=== PATIENT | female | born 1940 | race Caucasian/White ===

== ENCOUNTER 2020-10-18 04:19 | Day surgery (SDCO) | payer MEDICARE, OTHER ==
[~2020-10-18 04:19] MED LIST: ASPIRIN CHEWABL81 MG PO; B COMPLEX WITH1 EACH PO; CERTAGEN; METRONIDAZOLE500 MG PO; NORVASC2.5 MG PO; PREMARIN0.3 MG PO; PROBIOTIC1 EAC1 PO; SYNTHROID50 MCG PO; VITAMIN D310 MC3 PO
[2020-10-18 04:59] LABS: BASOPHIL 1.3 % (0-2); EOSINOPHIL 5.9 % (0-7); HGB 13.8 g/dl (12.5-16.0); LYMPHOCYTE 27.5 % (15-48); MCH 29.5 pg (25.0-31.0); MCHC 32.9 g/dL (32.0-36.0); MCV 89.7 fL (78.0-100.0); MONOCYTE 5.3 % (0-12); MPV 12.3 fL (6.0-9.5); NRBC 0; PLT 267 K/uL (150-400); RBC 4.68 M/uL (4.20-5.40); RDW 14.3 % (11.5-14.0); WBC 8.4 K/uL (4.0-10.5)
[2020-10-18 05:00] LABS: NEUTROPHIL 59.9 % (41-80)
[2020-10-18 05:25] LABS: ALBUMIN 3.3 g/dL (3.4-5.0); BILIRUBIN - TOTAL 0.3 mg/dL (0.2-1.0); BUN/CREAT RATIO (CALC) 23.9 RATIO; CREATININE 0.92 mg/dL (0.51-0.95); POTASSIUM 3.6 mmol/L (3.5-5.1); TOTAL PROTEIN 7.3 g/dL (6.4-8.2)
[2020-10-18 05:29] LABS: PRO-BNP 4659 pg/mL (<450)
[2020-10-18 05:55] LABS: CORONAVIRUS 2019 SARS-COV-2 NEGATIVE (NEGATIVE); INFLUENZA A NAA NEGATIVE (NEGATIVE)
[2020-10-18] MEDS ORDERED: TOPROL XL 50 MG50 MG PO (08:47)
--- NOTE | 2020-10-18 10:45 | NUR ---
LIVES WITH SPOUSE REPORTS INDEPENDENT WITH ADL'S
--- NOTE | 2020-10-18 12:55 | NUR ---
PT REPORTS SHE LIVES AT HOME WITH HER SPOUSE; SHE SAYS SHE DOES ALL HER ADL'S AND DOES NOT FEEL LIKE SHE WILL NEED ANY HOME HEALTH AT THIS TIME
[2020-10-19 04:45] LABS: HCT 41.9 % (37.0-47.0); HGB 14.1 g/dl (12.5-16.0); LYMPHOCYTE 24.8 % (15-48); MCH 29.9 pg (25.0-31.0); MCHC 33.7 g/dL (32.0-36.0); MCV 88.8 fL (78.0-100.0); MONOCYTE 6.2 % (0-12); MPV 12.7 fL (6.0-9.5); NEUTROPHIL 64.7 % (41-80); NRBC 0; PLT 241 K/uL (150-400); RBC 4.72 M/uL (4.20-5.40); RDW 14.2 % (11.5-14.0); WBC 8.8 K/uL (4.0-10.5)
[2020-10-19 05:01] LABS: BUN/CREAT RATIO (CALC) 21.6 RATIO; CREATININE 0.88 mg/dL (0.51-0.95); POTASSIUM 3.2 mmol/L (3.5-5.1)
--- NOTE | 2020-10-19 14:34 | NUR ---
1000 SPOKE TO A [employer] REPRESENTITIVE REGAURDING THE LIFE VEST THAT IS TO BE PLACED TODAY. STATED THAT THEY HAD HER INFORMATION AND WOULD BE CONTACTING US SOON TO TELL US AN ETA.
--- NOTE | 2020-10-19 14:53 | NUR ---
TOOK WLAK UP AND DOWN BOTH HALLS WITH PATIENT. TOLERATED WELL. WAS SLIGHTLY SHORT OF AIR APLIED O2 FOR APPROX 3 MINUTES WHILE ENCOURAGING DEEP BREATHING EXERCISES AND THEN O2 WAS REMOVED. PT STABLE WITH NO COMPLAINTS.
[2020-10-19] MEDS ORDERED: K-DUR20 MEQ PO (17:32)
[2020-10-19] MEDS ORDERED: ENTRESTO 24 MG1 EACH PO ×2 (17:32→18:22)
[2020-10-19] MEDS ORDERED: LASIX40 MG PO (17:32)
[2020-10-19] MEDS ORDERED: LISINOPRIL-HCT1 EAC1 PO (18:24)
== END 2020-10-19 18:50 | disposition home or self-care (01) ==
LOC: FER 04:19 → FMS 07:15
PROVIDERS: Emergency Medicine; Nurse Practitioner Family; ADMIT Internal Medicine
DX: I11.0 Hypertensive heart disease with heart failure (principal); I50.23 Acute on chronic systolic (congestive) heart failure; I50.1 Left ventricular failure, unspecified; I25.10 Atherosclerotic heart disease of native coronary artery without angina pectoris; J90 Pleural effusion, not elsewhere classified; E03.9 Hypothyroidism, unspecified; Z91.040 Latex allergy status; Z20.822 Contact with and (suspected) exposure to COVID-19; Z90.49 Acquired absence of other specified parts of digestive tract; Z87.39 Personal history of other diseases of the musculoskeletal system and connective tissue; Z82.49 Family history of ischemic heart disease and other diseases of the circulatory system
CPT/HCPCS: 36415; 36600; 71045; 71275; 80048; 80053; 82803; 83605; 83880; 84145; 84484; 85025; 85379; 87040; 93005; 94760; G0378; Q9967; U0002

== ENCOUNTER 2020-11-22 19:02 | Emergency (ER) | payer MEDICARE, OTHER ==
[~2020-11-22 19:02] MED LIST changes: +ENTRESTO 24 MG1 EACH PO; +K-DUR20 MEQ PO; +LASIX40 MG PO; +LISINOPRIL-HCT1 EAC1 PO; +TOPROL XL 50 MG50 MG PO
[2020-11-22 19:32] LABS: BASOPHIL 0.8 % (0-2); EOSINOPHIL 2.2 % (0-7); HCT 41.7 % (37.0-47.0); LYMPHOCYTE 27.6 % (15-48); MCHC 33.6 g/dL (32.0-36.0); MCV 89.3 fL (78.0-100.0); NEUTROPHIL 62.3 % (41-80); NRBC 0; PLT 260 K/uL (150-400); RBC 4.67 M/uL (4.20-5.40); RDW 14.7 % (11.5-14.0); WBC 9.3 K/uL (4.0-10.5)
[2020-11-22 19:36] LABS: INR 0.99 (0.9-1.2); PROTHROMBIN TIME 12.4 SECONDS (11.4-13.6); PTT 24.7 SECONDS (22.2-34.7)
[2020-11-22 19:51] LABS: ALBUMIN 3.6 g/dL (3.4-5.0); BILIRUBIN - TOTAL 0.4 mg/dL (0.2-1.0); CREATININE 0.88 mg/dL (0.51-0.95); GLOBULIN (CALCULATION) 3.9 g/dL; POTASSIUM 3.7 mmol/L (3.5-5.1); TOTAL PROTEIN 7.5 g/dL (6.4-8.2)
== END 2020-11-22 22:30 | disposition home or self-care (01) ==
LOC: FER 19:02
PROVIDERS: Student in an Organized Health Care Education/Training Program
DX: R07.9 Chest pain, unspecified (principal); I44.7 Left bundle-branch block, unspecified; I11.0 Hypertensive heart disease with heart failure; I50.9 Heart failure, unspecified
CPT/HCPCS: 36415; 71045; 80053; 84484; 85025; 85610; 85730; 93005

== ENCOUNTER 2021-11-29 20:04 | Emergency (ER) | payer MEDICARE, OTHER ==
[2021-11-29 21:19] LABS: BASOPHIL 0.9 % (0-2); EOSINOPHIL 1.3 % (0-7); HCT 43.5 % (37.0-47.0); HGB 14.9 g/dl (12.5-16.0); LYMPHOCYTE 21.4 % (15-48); MCH 30.7 pg (25.0-31.0); MCHC 34.3 g/dL (32.0-36.0); MCV 89.5 fL (78.0-100.0); MONOCYTE 9.5 % (0-12); MPV 11.9 fL (6.0-9.5); NEUTROPHIL 66.6 % (41-80); NRBC 0; PLT 236 K/uL (150-400); RBC 4.86 M/uL (4.20-5.40); RDW 13.2 % (11.5-14.0); WBC 8.7 K/uL (4.0-10.5)
[2021-11-29 21:22] LABS: BILIRUBIN NEGATIVE (NEGATIVE); BLOOD TRACE-INTACT Ery/uL (NEGATIVE); CLARITY CLEAR (CLEAR); COLOR YELLOW (YELLOW); GLUCOSE (U) NORMAL (NORMAL); LEUKOCYTES 2+ Leu/uL (NEGATIVE); NITRITE NEGATIVE (NEGATIVE); PROTEIN NEGATIVE (NEGATIVE); UROBILINOGEN 0.2 mg/dL (0.2-1.0)
[2021-11-29 21:31] LABS: BACTERIA TRACE; YEAST PRESENT
[2021-11-29 21:37] LABS: ALBUMIN 3.5 g/dL (3.4-5.0); BILIRUBIN - TOTAL 0.3 mg/dL (0.2-1.0); BUN/CREAT RATIO (CALC) 14.3 RATIO; CREATININE 1.05 mg/dL (0.51-0.95); GLOBULIN (CALCULATION) 4.2 g/dL; POTASSIUM 3.3 mmol/L (3.5-5.1); TOTAL PROTEIN 7.7 g/dL (6.4-8.2)
[2021-11-29] MEDS ORDERED: IMODIUM2 MG PO (22:56)
== END 2021-11-29 23:18 | disposition home or self-care (01) ==
LOC: FER 20:04
PROVIDERS: Physician Assistant
DX: R19.7 Diarrhea, unspecified (principal); T50.905A Adverse effect of unspecified drugs, medicaments and biological substances, initial encounter; I10 Essential (primary) hypertension; Z91.09 Other allergy status, other than to drugs and biological substances
CPT/HCPCS: 36415; 80053; 81001; 83690; 85025; J7040

== ENCOUNTER 2021-12-01 08:38 | Emergency (ER) | payer MEDICARE, OTHER ==
[~2021-12-01 08:38] MED LIST changes: +IMODIUM2 MG PO
[2021-12-01 10:06] LABS: BASOPHIL 0.7 % (0-2); EOSINOPHIL 2.2 % (0-7); HCT 43.1 % (37.0-47.0); HGB 14.7 g/dl (12.5-16.0); LYMPHOCYTE 20.8 % (15-48); MCH 30.4 pg (25.0-31.0); MCHC 34.1 g/dL (32.0-36.0); MONOCYTE 6.7 % (0-12); MPV 11.8 fL (6.0-9.5); NEUTROPHIL 69.2 % (41-80); NRBC 0; PLT 247 K/uL (150-400); RBC 4.84 M/uL (4.20-5.40); RDW 13.2 % (11.5-14.0)
[2021-12-01 10:09] LABS: BILIRUBIN NEGATIVE (NEGATIVE); BLOOD TRACE-INTACT Ery/uL (NEGATIVE); CLARITY CLEAR (CLEAR); COLOR YELLOW (YELLOW); GLUCOSE (U) NORMAL (NORMAL); LEUKOCYTES 2+ Leu/uL (NEGATIVE); NITRITE NEGATIVE (NEGATIVE); PROTEIN NEGATIVE (NEGATIVE); UROBILINOGEN 0.2 mg/dL (0.2-1.0)
[2021-12-01 10:19] LABS: BACTERIA 1+; URINARY RBC RARE
[2021-12-01 10:25] LABS: ALBUMIN 3.4 g/dL (3.4-5.0); BILIRUBIN - TOTAL 0.3 mg/dL (0.2-1.0); BUN/CREAT RATIO (CALC) 12.2 RATIO; CREATININE 0.9 mg/dL (0.51-0.95); GLOBULIN (CALCULATION) 3.7 g/dL; MAGNESIUM 1.6 mg/dL (1.8-2.4); TOTAL PROTEIN 7.1 g/dL (6.4-8.2)
[2021-12-01 10:27] LABS: LACTIC ACID 0.9 mmol/L (0.4-1.9)
[2021-12-02] MEDS ORDERED: POTASSIUM CHLO20 ME1 PO (08:38)
== END 2021-12-01 12:51 | disposition home or self-care (01) ==
LOC: FER 08:38
PROVIDERS: Emergency Medicine
DX: R19.7 Diarrhea, unspecified (principal); E87.6 Hypokalemia; I11.0 Hypertensive heart disease with heart failure; I50.9 Heart failure, unspecified; E03.9 Hypothyroidism, unspecified; Z79.82 Long term (current) use of aspirin; Z79.890 Hormone replacement therapy; Z79.899 Other long term (current) drug therapy; Z91.040 Latex allergy status
CPT/HCPCS: 36415; 80053; 81001; 82270; 83605; 83735; 84145; 85025; 87040; 87449; 99284; J7040

== ENCOUNTER 2021-12-02 04:45 | Emergency (ER) | payer MEDICARE, OTHER ==
[2021-12-02 05:16] LABS: BASOPHIL 0.9 % (0-2); EOSINOPHIL 1.9 % (0-7); HCT 42.3 % (37.0-47.0); HGB 14.6 g/dl (12.5-16.0); LYMPHOCYTE 22.7 % (15-48); MCH 30.5 pg (25.0-31.0); MCHC 34.5 g/dL (32.0-36.0); MCV 88.5 fL (78.0-100.0); MONOCYTE 7.5 % (0-12); MPV 11.6 fL (6.0-9.5); NEUTROPHIL 66.8 % (41-80); NRBC 0; PLT 234 K/uL (150-400); RBC 4.78 M/uL (4.20-5.40); RDW 13.2 % (11.5-14.0); WBC 8.9 K/uL (4.0-10.5)
[2021-12-02 05:55] LABS: ALBUMIN 3.2 g/dL (3.4-5.0); BILIRUBIN - TOTAL 0.4 mg/dL (0.2-1.0); BUN/CREAT RATIO (CALC) 12.7 RATIO; CREATININE 0.79 mg/dL (0.51-0.95); GLOBULIN (CALCULATION) 3.9 g/dL; MAGNESIUM 1.5 mg/dL (1.8-2.4); TOTAL PROTEIN 7.1 g/dL (6.4-8.2)
[2021-12-02] MEDS ORDERED: POTASSIUM CHLO20 ME1 PO (08:38)
== END 2021-12-02 09:30 | disposition home or self-care (01) ==
LOC: FER 04:45
PROVIDERS: Internal Medicine
DX: R20.2 Paresthesia of skin (principal); E87.6 Hypokalemia; G47.00 Insomnia, unspecified; E83.42 Hypomagnesemia
CPT/HCPCS: 36415; 80053; 83690; 83735; 84484; 85025; 93005; J3475; J3480; J7040; J7050

== ENCOUNTER 2021-12-05 22:06 | Emergency (ER) | payer MEDICARE, OTHER ==
[~2021-12-05 22:06] MED LIST changes: +POTASSIUM CHLO20 ME1 PO
[2021-12-06] MEDS ORDERED: CARAFATE S500 MG/TSP PO (00:36)
== END 2021-12-06 01:05 | disposition home or self-care (01) ==
LOC: FER 22:06
DX: F45.8 Other somatoform disorders (principal); Z91.040 Latex allergy status
CPT/HCPCS: 70490; 71045; 71250; 99284; Q9963

== ENCOUNTER 2021-12-08 00:59 | Emergency (ER) | payer MEDICARE, OTHER ==
[~2021-12-08 00:59] MED LIST changes: +CARAFATE S500 MG/TSP PO
[2021-12-08 01:14] LABS: BASOPHIL 0.9 % (0-2); EOSINOPHIL 2.8 % (0-7); HCT 40.5 % (37.0-47.0); HGB 13.6 g/dl (12.5-16.0); LYMPHOCYTE 31.1 % (15-48); MCH 30.2 pg (25.0-31.0); MCHC 33.6 g/dL (32.0-36.0); MCV 89.8 fL (78.0-100.0); MONOCYTE 8.1 % (0-12); MPV 11.5 fL (6.0-9.5); NEUTROPHIL 56.9 % (41-80); NRBC 0; PLT 257 K/uL (150-400); RBC 4.51 M/uL (4.20-5.40); RDW 13.5 % (11.5-14.0); WBC 9.4 K/uL (4.0-10.5)
[2021-12-08 01:49] LABS: BUN/CREAT RATIO (CALC) 15.1 RATIO; CREATININE 1.06 mg/dL (0.51-0.95); FT4 (FREE T4) 1.8 ng/dL (0.76-1.46); MAGNESIUM 1.6 mg/dL (1.8-2.4); POTASSIUM 3.7 mmol/L (3.5-5.1)
[2021-12-08 02:07] LABS: BILIRUBIN NEGATIVE (NEGATIVE); BLOOD TRACE-INTACT Ery/uL (NEGATIVE); CLARITY CLEAR (CLEAR); GLUCOSE (U) NORMAL (NORMAL); LEUKOCYTES 2+ Leu/uL (NEGATIVE); NITRITE NEGATIVE (NEGATIVE); PROTEIN NEGATIVE (NEGATIVE); SPECIFIC GRAVITY <=1.005 (1.001-1.030); UROBILINOGEN 0.2 mg/dL (0.2-1.0); pH 6.5 (5.0-9.0)
[2021-12-08 02:17] LABS: CORONAVIRUS 2019 SARS-COV-2 NEGATIVE (NEGATIVE); INFLUENZA A NAA NEGATIVE (NEGATIVE)
[2021-12-08 02:18] LABS: COLOR STRAW (YELLOW)
[2021-12-08 02:19] LABS: BACTERIA TRACE; URINARY RBC RARE
== END 2021-12-08 05:15 | disposition home or self-care (01) ==
LOC: FER 00:59
PROVIDERS: Internal Medicine
DX: R00.2 Palpitations (principal); R42 Dizziness and giddiness; I11.0 Hypertensive heart disease with heart failure; I50.9 Heart failure, unspecified; I25.10 Atherosclerotic heart disease of native coronary artery without angina pectoris; Z20.822 Contact with and (suspected) exposure to COVID-19; Z91.040 Latex allergy status
CPT/HCPCS: 36415; 71045; 80048; 81001; 83735; 83880; 84439; 84443; 84484; 85025; 93005; J3475; U0002

== ENCOUNTER 2022-05-02 08:10 | Day surgery (SDCO) | payer MEDICARE, OTHER ==
[~2022-05-02] VITALS: Ht 160 cm; Wt 44.6 kg
[~2022-05-02 08:10] MED LIST changes: -ASPIRIN CHEWABL81 MG PO; +BAYER CHEWABLE81 MG PO
[2022-05-02 09:43] LABS: BASOPHIL 0.2 % (0-2); EOSINOPHIL 0.3 % (0-7); HCT 40.5 % (37.0-47.0); HGB 14.2 g/dl (12.5-16.0); LYMPHOCYTE 23.7 % (15-48); MCH 30.3 pg (25.0-31.0); MCHC 35.1 g/dL (32.0-36.0); MCV 86.5 fL (78.0-100.0); MONOCYTE 4.6 % (0-12); MPV 11.2 fL (6.0-9.5); NRBC 0; PLT 274 K/uL (150-400); RBC 4.68 M/uL (4.20-5.40); RDW 12.8 % (11.5-14.0); WBC 8.8 K/uL (4.0-10.5)
[2022-05-02 10:08] LABS: LACTIC ACID 0.9 mmol/L (0.4-1.9)
[2022-05-02 10:10] LABS: ALBUMIN 3.1 g/dL (3.4-5.0); BILIRUBIN - TOTAL 0.5 mg/dL (0.2-1.0); C-REACTIVE PROTEIN 2.1 mg/dL (<=0.90); CREATININE 0.65 mg/dL (0.51-0.95); GLOBULIN (CALCULATION) 3.7 g/dL; MAGNESIUM 1.4 mg/dL (1.8-2.4); POTASSIUM 3.4 mmol/L (3.5-5.1); TOTAL PROTEIN 6.8 g/dL (6.4-8.2)
[2022-05-02 15:09] LABS: BILIRUBIN NEGATIVE (NEGATIVE); BLOOD NEGATIVE Ery/uL (NEGATIVE); CLARITY CLEAR (CLEAR); COLOR YELLOW (YELLOW); GLUCOSE (U) NORMAL (NORMAL); LEUKOCYTES NEGATIVE Leu/uL (NEGATIVE); NITRITE NEGATIVE (NEGATIVE); PROTEIN NEGATIVE (NEGATIVE); SPECIFIC GRAVITY <=1.005 (1.001-1.030); UROBILINOGEN 0.2 mg/dL (0.2-1.0)
[2022-05-02] MEDS ORDERED: ENTRESTO 49 MG1 EACH PO (17:08)
[2022-05-03 07:01] LABS: BASOPHIL 0.5 % (0-2); EOSINOPHIL 1.6 % (0-7); HCT 38.2 % (37.0-47.0); HGB 13.5 g/dl (12.5-16.0); LYMPHOCYTE 25.4 % (15-48); MCH 30.9 pg (25.0-31.0); MCHC 35.3 g/dL (32.0-36.0); MCV 87.4 fL (78.0-100.0); MONOCYTE 5.8 % (0-12); MPV 11.2 fL (6.0-9.5); NEUTROPHIL 66.5 % (41-80); NRBC 0; PLT 245 K/uL (150-400); RBC 4.37 M/uL (4.20-5.40); RDW 12.9 % (11.5-14.0); WBC 8.8 K/uL (4.0-10.5)
[2022-05-03 07:49] LABS: BUN/CREAT RATIO (CALC) 13.4 RATIO; CREATININE 0.67 mg/dL (0.51-0.95); MAGNESIUM 1.9 mg/dL (1.8-2.4); POTASSIUM 4.1 mmol/L (3.5-5.1)
[2022-05-03] MEDS ORDERED: MAG-OXIDE 400M400 MG PO (10:01)
== END 2022-05-03 11:42 | disposition home or self-care (01) ==
LOC: FER 08:10 → FMS 14:54
PROVIDERS: Emergency Medicine; ADMIT Internal Medicine
DX: K59.00 Constipation, unspecified (principal); U07.1 COVID-19; I11.0 Hypertensive heart disease with heart failure; I50.9 Heart failure, unspecified; E03.9 Hypothyroidism, unspecified; E83.42 Hypomagnesemia; E87.1 Hypo-osmolality and hyponatremia; E87.6 Hypokalemia; Z79.82 Long term (current) use of aspirin; Z79.899 Other long term (current) drug therapy; Z91.040 Latex allergy status; Z91.048 Other nonmedicinal substance allergy status
CPT/HCPCS: 36415; 80048; 80053; 81003; 82728; 83605; 83615; 83690; 83735; 84145; 85025; 86140; 87040; G0378; J2405; J3475; J3480; Q9967; U0002